=== PATIENT | male | born 1965 | race Caucasian/White ===

== ENCOUNTER 2018-03-30 12:54 | Emergency (ER) | payer OTHER ==
[~2018-03-30] VITALS: Ht 172.7 cm; Wt 74.4 kg
[2018-03-30 13:29] LABS: ABSOLUTE BASOPHIL COUNT 0 /CUMM (0.0-0.2); ABSOLUTE EOSINOPHIL COUNT 0 /CUMM (0.0-0.7); ABSOLUTE GRANULOCYTE CT 5.7 /CUMM (1.4-6.5); ABSOLUTE LYMPH COUNT 0.9 /CUMM (1.2-3.4); ABSOLUTE MONOCYTE COUNT 0.4 /CUMM (0.10-0.60); BASOPHIL % 0.5 % (0.0-2.0); EOSINOPHIL % 0.2 % (0-5); GRANULOCYTE % 80.9 % (42.2-75.2); HEMATOCRIT 40.4 % (42-52); MEAN CORPUSCULAR HGB CONC 34.8 G/DL (33.0-37.0); MEAN CORPUSCULAR VOLUME 86.2 FL (80.0-94.0); MEAN PLATELET VOLUME 7.7 FL (7.4-10.4); PLATELET COUNT 383 /CUMM (130-400); RBC DISTRIBUTION WIDTH 15.4 % (11.5-14.5); RED BLOOD CELL CT 4.69 /CUMM (4.70-6.10); WHITE BLOOD CELL COUNT 7.1 /CUMM (4.8-10.8)
--- NOTE | 2018-03-30 15:02 | ED GENERAL ADULT ---
History of Present Illness General Chief Complaint: ETOH/Drug Related Complaint Stated Complaint: HIGHWATCH CLEARANCE Source: patient Exam Limitations: no limitations Vital Signs & Intake/Output Vital Signs & Intake/Output Vital Signs Date Time Temp Pulse Resp B/P B/P Pulse O2 O2 Flow FiO2 Mean Ox Delivery Rate 03/30 1520 98.4 98 16 149/94 98 Room Air 03/30 1318 98.2 115 16 128/82 03/30 1317 98.2 115 18 128/82 97 Room Air Allergies Coded Allergies: No Known Allergies (03/30/18) Triage Note: PT TO ER FOR HIGHWATCH CLEARANCE. WAS SEEN AT [facility] AROUND 1100, BREATHALYZED AT .139. SENT TO [place] TO BE SEEN. LAST DRINK AT 0800, [employer]. NO HX OF W/D SEIZURES. DENIES DRUG USE. DENIES SI/HI. Triage Nurses Notes Reviewed? yes Onset: Abrupt Duration: week(s): Timing: recent history HPI: 03/30/18 52-year-old man presents to the emergency department for medical clearance for [place]. He denies any recent withdrawal seizures. His last drink was last night. He denies chest pain abdominal pain or other complaints. He is awake alert oriented 3 and is non-ataxic. He denies any abdominal pain. Past History Travel History Traveled to [place] past 21 day No Medical History Any Pertinent Medical History? see below for history Cancer(s): prostate cancer Surgical History Surgical History: non-contributory Psychosocial History What is your primary language Thai Tobacco Use: Current Not Daily Family History Hx Contributory? No Review of Systems Review of Systems Constitutional: Denies: fever. EENTM: Reports: no symptoms. Respiratory: Denies: short of breath. Cardiovascular: Denies: chest pain. GI: Denies: abdominal pain. Genitourinary: Reports: no symptoms. Musculoskeletal: Reports: no symptoms. Skin: Reports: no symptoms. Neurological/Psychological: Reports: no symptoms. Hematologic/Endocrine: Reports: no symptoms. Immunologic/Allergic: Reports: no symptoms. Physical Exam Physical Exam General Appearance: alert, awake, anxious, mild distress Head: atraumatic, normal appearance Eyes: Bilateral: normal appearance, PERRL, EOMI. Ears, Nose, Throat: normal pharynx, normal ENT inspection, hearing grossly normal Neck: normal inspection, supple Respiratory: normal breath sounds, chest non-tender Cardiovascular: regular rate/rhythm Peripheral Pulses: 4+ radial (R), 4+ radial (L) Gastrointestinal: non-tender Back: normal range of motion Extremities: normal inspection Neurologic/Psych: no motor/sensory deficits, awake, alert, oriented x 3 Skin: intact, normal color, warm/dry Core Measures ACS in differential dx? No CVA/TIA Diagnosis: No Sepsis Present: No Sepsis Focused Exam Completed? No Progress Differential Diagnoses I considered the following diagnoses in my evaluation of the patient: [Alcohol withdrawal, DTs, pancreatitis] Plan of Care: Orders Procedure Date/time Status Add-on Test (ER Only) 03/30 1455 Active MAGNESIUM 03/30 1320 Complete ETHANOL 03/30 1317 Complete COMPREHENSIVE METABOLIC PANEL 03/30 131 Complete CBC WITHOUT DIFFERENTIAL 03/30 131 Complete Laboratory Tests 03/30/18 1320: Anion Gap 20 H, Estimated GFR > 60, BUN/Creatinine Ratio 18.0, Glucose 188 H, Calcium 10.0, Magnesium 1.6, Total Bilirubin 1.1, AST 28, ALT 21, Alkaline Phosphatase 57, Total Protein 7.4, Albumin 5.0, Globulin 2.4, Albumin/Globulin Ratio 2.1, CBC w Diff NO MAN DIFF REQ, RBC 4.69 L, MCV 86.2, MCH 30.0, MCHC 34.8, RDW 15.4 H, MPV 7.7, Gran % 80.9 H, Lymphocytes % 12.8 L, Monocytes % 5.6, Eosinophils % 0.2, Basophils % 0.5, Absolute Granulocytes 5.7, Absolute Lymphocytes 0.9 L, Absolute Monocytes 0.4, Absolute Eosinophils 0, Absolute Basophils 0, Serum Alcohol 163.0 Initial ED EKG: none Departure Departure Disposition: STILL A PATIENT Condition: Stable Clinical Impression Primary Impression: Alcohol dependence with withdrawal Referrals: Unknown (PCP/Family) Departure Forms: Customer Survey General Discharge Information Comments Dave is awake alert oriented 3. No ataxia. His CIWA score is 0 (reported to me by nursing). He is been cleared for [facility]. He was given 1 mg of Ativan by mouth. He was transported to [facility]. Critical Care Note Critical Care Note Critical Care Time: non-applicable
[2018-03-30 15:20] VITALS: BP 149/94
== END 2018-03-30 15:23 ==
LOC: ERH 12:54
PROVIDERS: Emergency Medicine
DX: F10.239 Alcohol dependence with withdrawal, unspecified (principal)
CPT/HCPCS: G0480